=== PATIENT | female | born 1985 | race Caucasian/White ===

== ENCOUNTER 2017-11-20 17:27 | Emergency (ER) | payer BC, OTHER ==
[2017-11-20 18:02] VITALS: BP 117/65; PULSE 128; TEMP 100; BMI 20.9
--- NOTE | 2017-11-20 19:08 | PDOC ---
History of Present Illness - History of Present Illness Initial Comments: 11/20/17 20:13 Patient is a 32F, with no significant PMHx, who presents with abdominal pain today. Patient states that she started experiencing lower left sided abdominal pain that now radiates to her back. She does admit to heavy lifting earlier and states it could be a possible contributory factor. She is also complaining of body aches and fever. She states that on Tuesday, Nov 16 she saw her RADAR ENGINEER who confirmed that she has a cyst. She also admits to sick contacts - states he son is flu-A positive. Surgical Hx: denies PCP: Jenny Rice <Brinda Teixeira - Last Filed: 11/20/17 20:14> <Thalia Leija - Last Filed: 11/20/17 21:28> - General Chief Complaint: Pain, Acute Stated Complaint: PAIN Time Seen by Provider: 11/20/17 18:10 Past History <Brinda Teixeira - Last Filed: 11/20/17 20:14> - Suicide/Smoking/Psychosocial Hx Smoking History: Never smoked <Thalia Leija - Last Filed: 11/20/17 21:28> - Past Medical History Allergies/Adverse Reactions: Allergies Allergy/AdvReac Type Severity Reaction Status Date / Time No Known Allergies Allergy Verified 11/20/17 18:00 Review of Systems - Review of Systems Comments:: 11/20/17 20:14 CONSTITUTIONAL: Present: fever, body aches Absent: no chills, no fatigue EYES: Absent: visual changes ENT: Absent: ear pain, no sore throat CARDIOVASCULAR: Absent: chest pain, no palpitations RESPIRATORY: Absent: cough, no SOB GI: Present: Left subrapubic pain Absent: no nausea, no vomiting, no constipation, no diarrhea GENITOURINARY: Absent: dysuria, no frequency, no hematuria MUSCULOSKELETAL: Absent: no arthralgia, no myalgia SKIN: Absent: rash NEURO: Absent: headache <Brinda Teixeira - Last Filed: 11/20/17 20:14> *Physical Exam - Vital Signs Last Vital Signs Temp Pulse Resp BP Pulse Ox 100.0 F H 128 H 20 117/65 99 11/20/17 18:00 11/20/17 18:00 11/20/17 18:00 11/20/17 18:00 11/20/17 18:00 - Physical Exam Comments: 11/20/17 20:16 GENERAL: Febrile. Well-appearing, well-nourished. No apparent distress. HEENT: Normocephalic, atraumatic. PERRL, EOM intact. CARDIOVASCULAR: Normal S1, S2. Regular rate and rhythm. PULMONARY: Clear to auscultation bilaterally. ABDOMEN: Soft, non-distended, left suprapubic tenderness to palpation. EXTREMITIES: Normal ROM in all four extremities. No gross deformities. SKIN: Warm, dry. No rash NEUROLOGICAL: No focal neurological deficits. <Brinda Teixeira - Last Filed: 11/20/17 20:14> - Vital Signs Last Vital Signs Temp Pulse Resp BP Pulse Ox 100.0 F H 128 H 20 117/65 99 11/20/17 18:00 11/20/17 18:00 11/20/17 18:00 11/20/17 18:00 11/20/17 18:00 <Thalia Leija - Last Filed: 11/20/17 21:28> ED Treatment Course - Medications Given in the ED: ED Medications Discontinued Medications Generic Name Dose Route Start Last Admin Trade Name Freq PRN Reason Stop Dose Admin Ibuprofen 600 mg 11/20/17 19:41 11/20/17 20:09 Motrin - PO 11/20/17 19:42 600 mg ONCE ONE Administration <Brinda Teixeira - Last Filed: 11/20/17 20:14> Medical Decision Making - Medical Decision Making 11/20/17 21:24 Female with no past medical history presents with body pains and fever. She was concerned because the pain seemed to come on suddenly and she has a history of a left ovarian cyst that was diagnosed last Tuesday by her sewing department supervisor. Today, her pain is more in her back. Her son was diagnosed with influenza. 2 days ago. She is not . She does not have a urinary tract infection. Her pain went away with Motrin, Although her rapid influenza test was negative, I suspect that she is having prodromal symptoms from influenza and that her test was a false negative. She was encouraged to rest, take Tylenol or Motrin for fever and bodyaches, and I sent a Tamiflu prescription to her pharmacy <Thalia Leija - Last Filed: 11/20/17 21:28> *DC/Admit/Observation/Transfer <PuneetBrinda - Last Filed: 11/20/17 20:14> <HeladioThalia Darlene - Last Filed: 11/20/17 21:28> Diagnosis at time of Disposition: Fever Qualifiers: Fever type: due to other condition Qualified Code(s): R50.81 - Fever presenting with conditions classified elsewhere Back pain Qualifiers: Back pain location: low back pain Chronicity: acute Back pain laterality: bilateral Sciatica presence: without sciatica Qualified Code(s): M54.5 - Low back pain - Discharge Dispostion Disposition: HOME Condition at time of disposition: Stable - Referrals Referrals: Jenny Rice [Primary Care Provider] - - Patient Instructions Printed Discharge Instructions: DI for Fever (Symptom) -- Adult Additional Instructions: please take tylenol or motrin for pain or fever rest drink plenty of water Return to the ER if you have worsening symptoms - Post Discharge Activity
[2017-11-20] MEDS ORDERED: IBUPROFEN 600 MG TABLET (FP) PO ONE ×2 (19:41→20:01)
[2017-11-20 20:16] LABS: URINE APPEARANCE CLEAR; URINE BILIRUBIN NEGATIVE (NEGATIVE); URINE BLOOD 3+ (NEGATIVE); URINE COLOR STRAW; URINE GLUCOSE (UA) NEGATIVE (NEGATIVE); URINE KETONE 1+ (NEGATIVE); URINE LEUK ESTERASE TRACE (NEGATIVE); URINE NITRITE NEGATIVE (NEGATIVE); URINE PROTEIN NEGATIVE (NEGATIVE); URINE UROBILINOGEN NEGATIVE mg/dL (0.2-1.0)
[2017-11-20 20:27] LABS: URINE BACTERIA RARE /hpf (NONE SEEN)
== END 2017-11-20 21:39 | disposition home or self-care (01) ==
LOC: JER 17:27
DX: M54.5 Low back pain (principal); N83.202 Unspecified ovarian cyst, left side
CPT/HCPCS: 81003; 81015; 84703; 87804; 99281-25

== ENCOUNTER 2017-11-23 12:16 | Emergency (ER) | payer OTHER ==
[2017-11-23 12:22] VITALS: BP 123/67; PULSE 110; TEMP 100.2; BMI 20.9
--- NOTE | 2017-11-23 14:28 | PDOC ---
History of Present Illness - General Chief Complaint: Cold Symptoms Stated Complaint: COLD SYMPTOMS Time Seen by Provider: 11/23/17 14:15 History Source: Patient Exam Limitations: No Limitations - History of Present Illness Initial Comments: 11/23/17 14:41 Patient is here with continued complaints of body aches, chills, general malaise. was seen here 2 days ago and was prescribed azithromycin with his symptoms that are similar to hers. Patient was concerned she may have a bacterial infection and not influenza which she is currently under treatment for. Is able to tolerate by mouth fluids, but states felt cills and body aches persisted. Severity: reports: mild Associated Symptoms: reports: cough, dizziness, fever/chills, lightheadedness, nasal congestion, sore throat Past History - Travel Traveled outside of the country in the last 30 days: No Close contact w/someone who was outside of country & ill: No - Past Medical History Allergies/Adverse Reactions: Allergies Allergy/AdvReac Type Severity Reaction Status Date / Time No Known Allergies Allergy Verified 11/23/17 12:22 Home Medications: Ambulatory Orders Oseltamivir Phosphate [Tamiflu -] 75 mg PO BID #10 capsule 11/20/17 COPD: No - Suicide/Smoking/Psychosocial Hx Smoking History: Never smoked Information on smoking cessation initiated: No Hx Alcohol Use: No Drug/Substance Use Hx: No Substance Use Type: None Review of Systems - Review of Systems Able to Perform ROS?: Yes Is the patient limited Venezuelan proficient: Yes Constitutional: Yes: Symptoms Reported, See HPI, Loss of Appetite, Malaise HEENTM: Yes: Symptoms Reported, See HPI, Nose Congestion Respiratory: Yes: See HPI, Cough. No: Wheezing Musculoskeletal: Yes: Symptoms Reported, See HPI Integumentary: No: Symptoms Reported Neurological: Yes: Symptoms reported, See HPI All Other Systems: Reviewed and Negative *Physical Exam - Vital Signs Last Vital Signs Temp Pulse Resp BP Pulse Ox 100.2 F H 110 H 18 123/67 99 11/23/17 12:20 11/23/17 12:20 11/23/17 12:20 11/23/17 12:20 11/23/17 12:20 - Physical Exam General Appearance: Yes: Nourished, Appropriately Dressed, Apparent Distress, Mild Distress HEENT: positive: NANCY, Normal ENT Inspection, Normal Voice, TMs Normal, Pharynx Normal, Nasal Congestion, Rhinorrhea Neck: positive: Supple, Lymphadenopathy (R), Lymphadenopathy (L). negative: Tender Respiratory/Chest: positive: Lungs Clear, Normal Breath Sounds, Wheezing Gastrointestinal/Abdominal: positive: Normal Bowel Sounds, Soft Musculoskeletal: positive: Normal Inspection Extremity: positive: Normal Capillary Refill, Normal Inspection, Normal Range of Motion Integumentary: positive: Dry, Warm, Pale Neurologic: positive: maintenance of way clerk II-XII NML intact, Fully Oriented, Alert, Normal Mood/ Affect, Normal Response, Motor Strength 5 Progress Note - Progress Note Progress Note: Lingering symptoms of influenza, patient currently finishing course of Tamiflu. No further treatment indicated and conservative measures *DC/Admit/Observation/Transfer Diagnosis at time of Disposition: Influenzal acute upper respiratory infection - Discharge Dispostion Disposition: HOME Condition at time of disposition: Stable Admit: No - Referrals Referrals: Jenny Rice [Primary Care Provider] - - Patient Instructions Printed Discharge Instructions: DI for Viral Upper Respiratory Infection-Child Additional Instructions: Rest, drink lots of fluids: Teas, water, soups, Pedialyte Saltwater gargles Steamy showers/seem to face break up mucus Old-fashioned treatments help! Avoid contact with others until fevers and cough resolved as this is very contagious Lots of handwashing and good hygiene Continue [id number] medications for symptomatic relief Tylenol or Motrin for fever and pain Take all of Tamiflu as directed: 1 tab every 12 hours for 5 days Followup with private physician in one to 2 days as needed or if worsening Return to emergency department for worsened symptoms, fevers, dehydration Influenza takes between 5 and 7 days for resolution To not participate in any activity, work, or school until fevers and cough are gone for at least one day - Post Discharge Activity Forms/Work/School Notes: Back to Work
[2017-11-23] MEDS ORDERED: KETOROLAC TROMETHAMINE 60 MG/2 ML VIAL IM ONE (14:36)
[2017-11-23] MEDS ORDERED: KETOROLAC TROMETHAMINE 60 MG/2 ML VIAL ONE (14:38)
== END 2017-11-23 14:45 | disposition home or self-care (01) ==
LOC: JERFT 12:16
PROC: 3E0233Z Introduction of Anti-inflammatory into Muscle, Percutaneous Approach (ICD-10-PCS; principal; 2017-11-23)
DX: J10.1 Influenza due to other identified influenza virus with other respiratory manifestations (principal)
CPT/HCPCS: 99281-25

== ENCOUNTER 2017-12-15 05:18 | Day surgery (SDC) | payer OTHER ==
[2017-12-14 08:17] VITALS: BMI 20.7
[2017-12-15] MEDS ORDERED: oxyCODONE HCL 5 MG TABLET PO PRN ×2 (08:11→09:54)
[2017-12-15] MEDS ORDERED: IBUPROFEN 400 MG TABLET (FP) PO PRN (08:11)
[2017-12-15] MEDS ORDERED: ACETAMINOPHEN 325 MG TABLET (FP) PO PRN (08:11)
--- NOTE | 2017-12-15 08:11 | HP ---
History & Physical Update - History History: No Change - Physical Physical: No Change - Assessment Assessment: No Change - Plan Plan: No Change
[2017-12-15] MEDS ORDERED: MIDAZOLAM HCL 2 MG/2 ML SINGLE DOSE VIAL ONE (09:33)
[2017-12-15] MEDS ORDERED: KETOROLAC TROMETHAMINE 30 MG/1 ML VIAL ONE (09:34)
[2017-12-15] MEDS ORDERED: DEXAMETHASONE SOD PHOSPHATE 4 MG/1 ML VIAL ONE (09:34)
[2017-12-15] MEDS ORDERED: LIDOCAINE HCL/PF 2% SDV 5ML VIAL ONE ×2 (09:34→10:18)
[2017-12-15] MEDS ORDERED: GLYCOPYRROLATE 0.2 MG/1 ML VIAL ONE (09:34)
[2017-12-15] MEDS ORDERED: ONDANSETRON 4 MG/2 ML VIAL IVPUSH PRN (09:54)
[2017-12-15] MEDS ORDERED: LACTATED RINGERS SOLUTION 1,000 ML IV SCH (10:00)
[2017-12-15] MEDS ORDERED: ceFAZolin SODIUM 1 GM VIAL IVPB ONE (10:01)
[2017-12-15] MEDS ORDERED: PROPOFOL 20 ML ONE ×2 (10:15)
[2017-12-15] MEDS ORDERED: ROCURONIUM BROMIDE 50 MG/5 ML VIAL ONE (10:19)
[2017-12-15] MEDS ORDERED: BUPIVACAINE HCL/PF 0.5% (5MG/ML) 10 ML VIAL IJ ONE (10:40)
--- NOTE | 2017-12-15 11:12 | OP ---
DATE OF OPERATION: 12/15/2017 PREOPERATIVE DIAGNOSES: Ovarian cyst, multiparity, and voluntary sterilization. OPERATION: Laparoscopic bilateral salpingectomy and right fallopian tube cystectomy. POSTOPERATIVE DIAGNOSES: Right fallopian tube cyst. Normal tubes and ovaries. DESCRIPTION OF PROCEDURE: Patient was taken to the operating room, placed in dorsal lithotomy position, prepped and draped in the usual sterile fashion. A timeout was performed in accordance with hospital regulation. Wei catheter was inserted into the bladder. Attention was then drawn to the umbilicus where a 5-mm umbilical incision was made. Veress needle was inserted into the cavity. Approximately 3-4 L of CO2 was insufflated in the cavity. Veress needle was removed, and a 5-mm trocar was inserted. Laparoscope and camera were attached. Trocars were then inserted in the left and right lower abdomen. Scalpel was made, and a 5-mm trocar was then inserted under direct visualization. Bilateral tubes were seen. Also, a right fallopian tube cyst was also seen. tubes were grasped, and bilateral salpingectomy was performed using cutting and cautery. Left tube was grabbed and removed using LigaSure. Left tube was submitted to Pathology. Attention was then drawn to the right side where a right fallopian tube cyst was seen. Cautery and cutting of the right fallopian tube was done, and tube and cyst were removed and submitted to Pathology. Right fallopian tube cystectomy was done, and cyst was removed. Hemostasis achieved. Estimated blood loss was 10 mL. CO2 was removed from the abdomen. Trocars removed and incisions were then closed using 4-0 Biosyn suture in a subcuticular fashion. Wound was washed and dressed. The patient had tolerated the procedure well, was taken to Recovery in stable condition. Again, estimated blood loss 10 mL. ANGELY LAWSON M.D. [id number]
[2017-12-15 11:56] VITALS: TEMP 98
[2017-12-15] MEDS ORDERED: oxyCODONE HCL 5 MG TABLET ONE (12:52)
[2017-12-15 15:46] VITALS: BP 99/68; PULSE 67
--- NOTE | 2017-12-16 14:39 | PATH ---
Surgical Pathology Report Patient Name: EVERARDO SERNA [facility]. Rec. #: [id number] /Age/Gender: 1985 (Age: 32) / F Account: [id number] Location: [facility] SURGICAL Taken: 12/15/2017 Received: 12/15/2017 Reported: 12/16/2017 Physicians: Rosemary Croft M.D. Specimen(s) Received A: RIGHT FALLOPIAN TUBE AND FALLOPIAN CYST B: LEFT FALLOPIAN TUBE Clinical History Sterilization Final Diagnosis A. RIGHT FALLOPIAN TUBE, SALPINGECTOMY: BENIGN FALLOPIAN TUBE INCLUDING FIMBRIATED END, WITH BENIGN PARATUBAL CYST. B. LEFT FALLOPIAN TUBE, SALPINGECTOMY: BENIGN FALLOPIAN TUBE INCLUDING FIMBRIATED END, WITH BENIGN PARATUBAL CYST. Electronically Signed Sanford Arredondo M.D. Gross Description A. Received in formalin labeled "right fallopian cyst and tube," are 2 pink-cho portions of fallopian tube measuring 2.0 and 3.0 cm in length. The outer surfaces are cho-pink and smooth. Sectioning reveals unremarkable lumen. There are fimbriae with an attached paratubal cyst separately received within the same container. The paratubal cyst measures 0.8 cm in greatest dimension. Water Resources Engineer sections are submitted in 2 cassettes as follows: 1-fimbria with attached paratubal cyst; 2-cross sections of fallopian tube. B. Received in formalin labeled "left fallopian tube," is a 4 cm in length fimbriated portion of fallopian tube. There is a 0.9 cm in greatest dimension paratubal cyst attached to the fimbria. The outer surface of the fallopian tube is pink-cho and smooth. Sectioning reveals an unremarkable lumen. Water Resources Engineer sections are submitted in 2 cassettes as follows: 1-fimbria with attached paratubal cyst; 2-cross sections of fallopian tube. DL/12/15/2017 saudi/12/15/2017
== END 2017-12-15 14:10 | disposition home or self-care (01) ==
LOC: JASU-SURG 05:18
PROVIDERS: ATTEND Obstetrics & Gynecology
PROC: 0UB74ZZ Excision of Bilateral Fallopian Tubes, Percutaneous Endoscopic Approach (ICD-10-PCS; principal; 2017-12-15 09:00)
PROC: 0UB54ZZ Excision of Right Fallopian Tube, Percutaneous Endoscopic Approach (ICD-10-PCS; 2017-12-15 09:00)
DX: Z30.2 Encounter for sterilization (principal); N83.8 Other noninflammatory disorders of ovary, fallopian tube and broad ligament
CPT/HCPCS: 86900; 88302-TC; 94760

== ENCOUNTER 2018-03-31 03:52 | Emergency (ER) | payer OTHER ==
[2018-03-31 04:15] LABS: URINE APPEARANCE CLEAR; URINE BILIRUBIN NEGATIVE (<2.0 mg/dL); URINE BLOOD 3+ (NEGATIVE); URINE COLOR AMBER; URINE GLUCOSE (UA) NEGATIVE (NEGATIVE); URINE KETONE NEGATIVE (NEGATIVE); URINE NITRITE POSITIVE (NEGATIVE); URINE UROBILINOGEN NEGATIVE mg/dL (0.2-1.0)
--- NOTE | 2018-03-31 04:18 | PDOC ---
History of Present Illness - General Chief Complaint: Urinary Problem Stated Complaint: URINARY PROBLEM Time Seen by Provider: 03/31/18 04:05 History Source: Patient Exam Limitations: No Limitations - History of Present Illness Travel History: No Initial Comments: 03/31/18 04:16 33-year-old female with no past medical history presents to the emergency room with complaints of urinary frequency, pressure and now hematuria since this morning. Patient states symptoms began a few days ago and tried increasing her fluids and trying [id number]-[id number] medication with no improvement. Patient denies fever, chills, back pain, vaginal discharge irregular menses. Patient states did have bilateral BTL in December which she states was success with no complications. Patient has no other complaints at this time. Timing/Duration: reports: constant Quality: reports: mild, cramping, fullness Abdominal Pain Onset Location: reports: suprapubic Pain Radiation: reports: no radiation Activities at Onset: reports: none Aggravating Factors: improves with: Voiding Alleviating Factors: improves with: None Past History - Past Medical History Allergies/Adverse Reactions: Allergies Allergy/AdvReac Type Severity Reaction Status Date / Time No Known Allergies Allergy Verified 03/31/18 04:11 Home Medications: Ambulatory Orders Ibuprofen [Motrin -] 600 mg PO QID #120 tablet 12/15/17 Nitrofurantoin Monohyd/M-Cryst [Macrobid -] 100 mg PO BID #13 capsule 03/31/18 Phenazopyridine HCl [Pyridium] 200 mg PO TID #5 tablet 03/31/18 Anemia: No Asthma: No Cancer: No Cardiac Disorders: No CVA: No COPD: No CHF: No Dementia: No Diabetes: No GI Disorders: No Disorders: No HTN: No Hypercholesterolemia: No Liver Disease: No Seizures: No Thyroid Disease: No - Suicide/Smoking/Psychosocial Hx Smoking History: Never smoked Have you smoked in the past 12 months: No Information on smoking cessation initiated: No Hx Alcohol Use: No Drug/Substance Use Hx: No Substance Use Type: Alcohol Hx Substance Use Treatment: No Patient Lives Alone: No Lives with/in: parents Review of Systems - Review of Systems Able to Perform ROS?: Yes Constitutional: No: Symptoms Reported ABD/GI: Yes: Abdominal cramping : Yes: Burning, Dysuria, Frequency, Hematuria, Urgency Musculoskeletal: No: Symptoms Reported Integumentary: No: Symptoms Reported Neurological: No: Symptoms reported *Physical Exam - Vital Signs Last Vital Signs Temp Pulse Resp BP Pulse Ox 97.5 F L 72 20 116/75 100 03/31/18 03:55 03/31/18 03:55 03/31/18 03:55 03/31/18 03:55 03/31/18 03:55 - Physical Exam General Appearance: Yes: Nourished, Appropriately Dressed. No: Apparent Distress Neck: positive: Normal Thyroid, Supple Gastrointestinal/Abdominal: positive: Normal Bowel Sounds, Soft, Tenderness ( mild lower mid suprapubic). negative: Distended, Guarding, Rebound Musculoskeletal: negative: CVA Tenderness Extremity: positive: Normal Capillary Refill. negative: Pedal Edema Integumentary: positive: Normal Color, Warm, Moist Neurologic: positive: Motor Strength 5/5 (ambulatory) Medical Decision Making - Medical Decision Making 03/31/18 04:17 Patient with urinary complaints for the past 2 days with no improvement with [id number]-[id number] AZO and increase her fluids. Patient history of BTL in December has no other complaints at this time. LMP March 13. Rule out UTI/. UA U culture and hCG was sent. Patient offered Tylenol refused at this time. 03/31/18 04:30 Laboratory Tests 03/31/18 04:07 Urine Blood 3+ H Urine Nitrite Positive Ur Leukocyte Esterase 2+ H Urine RBC (Auto) Pending Patient with no previous urine culture on file. Patient will be given Pyridium secondary to urinary frequency and burning along with Macrobid. Urine culture was sent. *DC/Admit/Observation/Transfer Diagnosis at time of Disposition: UTI (urinary tract infection) - Discharge Dispostion Disposition: HOME Condition at time of disposition: Good - Prescriptions Prescriptions: Nitrofurantoin Monohyd/M-Cryst [Macrobid -] 100 mg PO BID #13 capsule Phenazopyridine HCl [Pyridium] 200 mg PO TID #5 tablet - Referrals Referrals: Jenny Rice [Primary Care Provider] - - Patient Instructions Printed Discharge Instructions: DI for Urinary Tract Infection (UTI) Additional Instructions: Take antibiotics starting later today since your given your first dose here in the ER. May take Tylenol or Motrin if you develop any fever. If you develop worsening symptoms including back pain please return to the nearest ER. Otherwise finish antibiotics as prescribed. - Post Discharge Activity
[2018-03-31 04:21] LABS: URINE LEUK ESTERASE 2+ (NEGATIVE); URINE PROTEIN 1+ (NEGATIVE)
[2018-03-31] MEDS ORDERED: PHENAZOPYRIDINE HCL 100 MG TABLET (FP) PO ONE (04:36)
[2018-03-31 04:37] VITALS: BP 116/75; PULSE 72; TEMP 97.5; BMI 24.4
[2018-03-31] MEDS ORDERED: NITROFURANTOIN MACROCRYSTAL 50 MG CAPSULE (FP) ONE (04:40)
[2018-03-31] MEDS ORDERED: PHENAZOPYRIDINE HCL 100 MG TABLET (FP) ONE (04:40)
[2018-03-31] MEDS ORDERED: NITROFURANTOIN MACROCRYSTAL 50 MG CAPSULE (FP) PO SCH (04:45)
[2018-03-31 05:25] LABS: URINE BACTERIA RARE /hpf (NONE SEEN)
[2018-03-31 05:32] LABS: HCG,QUALITATIVE URINE NEGATIVE
--- NOTE | 2018-04-02 15:32 | PDOC ---
Patient Follow-up (Call Back) - Post ED Follow - Up Condition at time of discharge: Good Disposition at time of original discharge: HOME Reason for Call Back: Abnwl. Microbiology (Pt. on macrobid for UTI. Patient with macrobid sensitive e.coli. No further action needed at this time)
== END 2018-03-31 04:45 | disposition home or self-care (01) ==
LOC: JER 03:52
DX: N39.0 Urinary tract infection, site not specified (principal); B96.89 Other specified bacterial agents as the cause of diseases classified elsewhere
CPT/HCPCS: 81003; 81015; 84703; 87086; 87186; 99282-25

== ENCOUNTER 2019-08-23 20:12 | Emergency (ER) | payer OTHER ==
[2019-08-23] MEDS ORDERED: ONDANSETRON *ODT* 4 MG TABLET SL ONE (20:32)
--- NOTE | 2019-08-23 20:33 | PDOC ---
Rapid Medical Evaluation Chief Complaint: Nausea/Vomiting Time Seen by Provider: 08/23/19 20:29 Medical Evaluation: Allergies Allergy/AdvReac Type Severity Reaction Status Date / Time No Known Allergies Allergy Verified 03/31/18 04:11 08/23/19 20:29 I have performed a brief in-person evaluation of this patient. The patient presents with a chief complaint of:N/V x 4 episodes. No fevers, no vaginal bowel or urine problems Pertinent physical exam findings: pale , abd soft I have ordered the following: UA / zofran ordered The patient will proceed to the ED for further evaluation. 08/23/19 20:33 Discharge Disposition - Diagnosis N&V (nausea and vomiting) - Discharge Dispostion Condition at time of disposition: Stable - Referrals - Patient Instructions - Post Discharge Activity
[2019-08-23 20:38] VITALS: TEMP 97.9; BMI 20.7
[2019-08-23] MEDS ORDERED: ACETAMINOPHEN 1000 MG/100 ML VIAL (NON FORMULARY) IVPB ONE (20:46)
[2019-08-23] MEDS ORDERED: SODIUM CHLORIDE 1,000 ML IV STA (20:46)
[2019-08-23] MEDS ORDERED: ONDANSETRON 4 MG/2 ML VIAL IVPUSH ONE (21:28)
[2019-08-23] MEDS ORDERED: ACETAMINOPHEN INJECTION 100 ML IVPB ONE (21:31)
[2019-08-23] MEDS ORDERED: ONDANSETRON 4 MG/2 ML VIAL ONE (21:31)
--- NOTE | 2019-08-23 21:38 | PDOC ---
History of Present Illness - General Chief Complaint: Nausea/Vomiting Stated Complaint: NAUSEA/VOMITING Time Seen by Provider: 08/23/19 20:29 - History of Present Illness Initial Comments: 08/23/19 21:29 34f with no pmh presents to the ED for nausea/vomiting and bitemporal headache since 11am this morning. She vomited 4 times, last of which was an hour ago. Unable to keep anything down. Vomitus is clear, non bilious, on-bloody. Headache was slow in onset, about 5/10, bitemporal. Had a couple drinks last night and take out food with the family but no one else is sick. Works at the [employer] where she is in contact with hundreds of people all day. Had tubal ligation surgery one year ago. Denies fever, chills, sob, chest pain, change in vision, diarrhea. Past History - Past Medical History Allergies/Adverse Reactions: Allergies Allergy/AdvReac Type Severity Reaction Status Date / Time No Known Allergies Allergy Verified 03/31/18 04:11 Home Medications: Ambulatory Orders Ibuprofen [Motrin -] 600 mg PO QID #120 tablet 12/15/17 Nitrofurantoin Monohyd/M-Cryst [Macrobid -] 100 mg PO BID #13 capsule 03/31/18 Phenazopyridine HCl [Pyridium] 200 mg PO TID #5 tablet 03/31/18 Anemia: No Asthma: No Cancer: No Cardiac Disorders: No CVA: No COPD: No CHF: No Dementia: No Diabetes: No GI Disorders: No Disorders: No HTN: No Hypercholesterolemia: No Liver Disease: No Seizures: No Thyroid Disease: No - Psycho Social/Smoking Cessation Hx Smoking History: Never smoked Have you smoked in the past 12 months: No Information on smoking cessation initiated: No Hx Alcohol Use: No Drug/Substance Use Hx: No Substance Use Type: Alcohol Hx Substance Use Treatment: No Review of Systems - Review of Systems Able to Perform ROS?: Yes Is the patient limited Puerto Rican proficient: No Constitutional: Yes: Loss of Appetite. No: Symptoms Reported HEENTM: No: Symptoms Reported Respiratory: No: Symptoms reported Cardiac (ROS): No: Symptoms Reported ABD/GI: Yes: See HPI : No: Symptoms Reported Musculoskeletal: No: Symptoms Reported Integumentary: No: Symptoms Reported Neurological: No: Symptoms reported All Other Systems: Reviewed and Negative *Physical Exam - Vital Signs Last Vital Signs Temp Pulse Resp BP Pulse Ox 97.9 F 77 18 118/85 100 08/23/19 20:30 08/23/19 20:30 08/23/19 20:30 08/23/19 20:30 08/23/19 20:30 - Physical Exam General Appearance: Yes: Nourished, Appropriately Dressed. No: Apparent Distress HEENT: positive: EOMI, NANCY, Normal ENT Inspection Neck: negative: Tender, Carotid bruit Respiratory/Chest: positive: Lungs Clear, Normal Breath Sounds. negative: Chest Tender, Respiratory Distress Cardiovascular: positive: Regular Rhythm, Regular Rate, S1, S2 Gastrointestinal/Abdominal: positive: Normal Bowel Sounds, Flat, Soft. negative : Tender Musculoskeletal: positive: Normal Inspection. negative: CVA Tenderness Integumentary: positive: Normal Color, Dry, Warm Neurologic: positive: Fully Oriented, Alert, Normal Mood/Affect, Normal Response , Motor Strength 5/5 Medical Decision Making - Medical Decision Making 08/23/19 21:39 34f with no pmh presents to the ED for nausea/vomiting and bitemporal headache since 11am this morning. DDX: mild viral gastroenteritis, food poisoning, hangover, , SAH Low intensity headache, neurologically intact, low suspicion for stroke or sah, or carotid dissection. Likely viral gastro. Low suspicion for food poisoning as nobody else got sick after sharing the same food. Will rehydrate with 1L fluids zofran for nausea and Tylenol for headache. Upreg pending. 08/23/19 22:41 Patient feels much better. Nausea and headache gone, PO challenge and DC. Discharge - Discharge Information Problems reviewed: Yes Clinical Impression/Diagnosis: N&V (nausea and vomiting) Condition: Stable - Admission No - Follow up/Referral Referrals: Jenny Rice [Primary Care Provider] - - Patient Discharge Instructions Patient Printed Discharge Instructions: DI for Viral Gastroenteritis -- Adult Additional Instructions: Come back to the emergency department for any new, worsening or concerning symptoms. Follow up with your primary physician within a week. - Post Discharge Activity
[2019-08-23] MEDS ORDERED: METOCLOPRAMIDE HCL INJECTION 10 MG/2 ML VIAL IVPUSH ONE (21:49)
[2019-08-23 22:06] LABS: EPI CELLS 5.7 /HPF (0-5/HPF); HYALINE CASTS 15 /lpf (0-8); PH,URINE 5.5 (5.0-8.0); URINE APPEARANCE CLOUDY; URINE BACTERIA 57.5 /hpf (NEGATIVE); URINE BILIRUBIN NEGATIVE (NEGATIVE); URINE COLOR YELLOW; URINE GLUCOSE (UA) NEGATIVE (NEGATIVE); URINE KETONE 3+ (NEGATIVE); URINE LEUK ESTERASE NEGATIVE (NEGATIVE); URINE NITRITE NEGATIVE (NEGATIVE); URINE PROTEIN 2+ (NEGATIVE); URINE WBC 6 /hpf (0-5)
[2019-08-23 22:33] VITALS: BP 103/70; PULSE 72
[2019-08-23] MEDS ORDERED: METOCLOPRAMIDE HCL INJECTION 10 MG/2 ML VIAL ONE (22:34)
--- NOTE | 2019-08-23 22:52 | PDOC ---
Documentation entered by Richard Guerrero SCRIBE, acting as scribe for Gagan Jacobs MD. Gagan Jacobs MD: This documentation has been prepared by the Cesar diego Xhesika, SCRIBE, under my direction and personally reviewed by me in its entirety. I confirm that the documentation accurately reflects all work, treatment, procedures, and medical decision making performed by me. Attending Attestation - Resident Resident Name: Reggie Mcdermott - ED Attending Attestation I have performed the following: I have examined & evaluated the patient, The case was reviewed & discussed with the resident, Exceptions are as noted - HPI HPI: 08/23/19 20:55 The patient is a 34 year old female with no significant PMH of who presents to the emergency department for nausea and 4 episodes of nbnb vomiting since 11am. Patient notes she had takeout and 2 drinks last night. Pt endorses feeling generally weak and hung over this morning, after geting up she had something to drihnk then vomited. pt endorses a gradual onset pounding headache in the frontal regiont withou associated fever/chills, vision changes, numbness/ tingling/weakness, neck pain, back pain, abd pain, ches pain, diarhea, bpr. LMP lsa week and was normal. no travel or sick contacts Allergies: NKDA Surgical hsx: tubectomy PCP: Dr. Jenny Rice - Physicial Exam PE: 08/23/19 20:56 GENERAL: The patient is awake, alert, and fully oriented, Nontoxic - in no acute distress. HEAD: Normocephalic, atraumatic. EYES: extraocular movements intact, sclera anicteric, conjunctiva clear. ENT: Normal voice, Moist mucous membranes. NECK: Normal range of motion, supple without lymphadenopathy, JVD, or masses. LUNGS: Breath sounds equal, clear to auscultation bilaterally. No wheezes, no crackles, no rales. HEART: Regular rate and rhythm, normal S1 and S2 without murmur, rub or gallop. ABDOMEN: Soft, nontender, normoactive bowel sounds. No guarding, no rebound. No masses. EXTREMITIES: Normal range of motion, no edema. No clubbing or cyanosis. No cords, erythema, or tenderness. NEUROLOGICAL: No facial asymmetry, Normal speech, normal gait. PSYCH: Normal mood, normal affect. SKIN: Warm, Dry, normal turgor, no rashes or lesions noted. - Medical Decision Making 08/23/19 21:56 Possible migraine versus gastritis We will give Reglan, fluids will obtain UA and hCG No signs of abdominal tenderness suggest acute intra-abdominal process 08/23/19 22:52 Patient feeling improved headache resolved patient tolerating oral intake will discharge patient with outpatient management Return precautions were discussed
[2019-08-23 23:28] LABS: URINE RBC 152 /hpf (0-4)
== END 2019-08-23 23:37 | disposition home or self-care (01) ==
LOC: JER 20:12
PROC: 3E033NZ Introduction of Analgesics, Hypnotics, Sedatives into Peripheral Vein, Percutaneous Approach (ICD-10-PCS; principal; 2019-08-23)
PROC: 3E033GC Introduction of Other Therapeutic Substance into Peripheral Vein, Percutaneous Approach (ICD-10-PCS; 2019-08-23)
DX: A08.4 Viral intestinal infection, unspecified (principal); B97.89 Other viral agents as the cause of diseases classified elsewhere
CPT/HCPCS: 81003; 84703; 99283-25; J0131; J7030

== ENCOUNTER 2021-07-19 14:03 | Emergency (ER) | payer OTHER ==
[2021-07-19 14:06] VITALS: BMI 21.4
[2021-07-19] MEDS ORDERED: METOCLOPRAMIDE HCL INJECTION 10 MG/2 ML VIAL IVPUSH ONE (15:29)
[2021-07-19] MEDS ORDERED: ACETAMINOPHEN/CAFFEINE/BUTALBITAL 1 TAB PO ONE (15:31)
[2021-07-19] MEDS ORDERED: SODIUM CHLORIDE 1,000 ML IV STA (15:32)
[2021-07-19] MEDS ORDERED: METOCLOPRAMIDE HCL INJECTION 10 MG/2 ML VIAL ONE (16:06)
[2021-07-19 16:12] LABS: HEMATOCRIT 31.8 % (32.4-45.2); HEMOGLOBIN 10.2 GM/dL (10.7-15.3); MCHC 32.1 g/dl (32.0-36.0); MEAN CELL VOLUME 65.4 fl (80-96); MEAN PLT VOLUME 7.5 fl (7.5-11.1); PLATELET COUNT 367 10^3/uL (134-434); RBC 4.87 M/mm3 (3.60-5.2); RDW 16.7 % (11.6-15.6); WHITE BLOOD COUNT 8.9 K/mm3 (4.0-10.0)
[2021-07-19 16:32] LABS: CALCIUM 9.2 mg/dL (8.5-10.1)
[2021-07-19 16:33] LABS: ALBUMIN 3.9 g/dl (3.4-5.0); BLOOD UREA NITROGEN 14.7 mg/dL (7-18)
[2021-07-19 16:36] LABS: CREATININE 0.6 mg/dL (0.55-1.3)
[2021-07-19 16:37] LABS: BILIRUBIN,TOTAL 0.3 mg/dL (0.2-1); TOT PROT 7.5 g/dl (6.4-8.2)
[2021-07-19] MEDS ORDERED: ACETAMINOPHEN/CAFFEINE/BUTALBITAL 1 TAB ONE (17:48)
[2021-07-19 18:47] VITALS: BP 126/78; PULSE 88; TEMP 98.5
== END 2021-07-19 18:48 | disposition home or self-care (01) ==
LOC: JER 14:03
PROC: 3E033GC Introduction of Other Therapeutic Substance into Peripheral Vein, Percutaneous Approach (ICD-10-PCS; principal; 2021-07-19)
DX: G43.909 Migraine, unspecified, not intractable, without status migrainosus (principal)
CPT/HCPCS: 36415; 80053; 84703; 85027; 96361; 96374; 99284-25

== ENCOUNTER 2023-09-27 19:03 | Emergency (ER) | payer OTHER ==
[2023-09-27 19:10] VITALS: TEMP 99.5; BMI 21.7
[2023-09-27] MEDS ORDERED: KETOROLAC TROMETHAMINE 15 MG/ML VIAL IVPUSH ONE (21:13)
[2023-09-27] MEDS ORDERED: SODIUM CHLORIDE 0.9% 1000 ML INFUS.BAG IV ONE (21:14)
[2023-09-27] MEDS ORDERED: KETOROLAC TROMETHAMINE 15 MG/ML VIAL ONE (21:28)
[2023-09-27 21:35] LABS: BASO % 0.5 % (0-2.0); EOS % 0.6 % (0-4.5); HEMATOCRIT 37.3 % (32.4-45.2); MCH 22.7 pg (25.7-33.7); MCHC 32.2 g/dl (32.0-36.0); MEAN CELL VOLUME 70.4 fl (80-96); MEAN PLT VOLUME 7.9 fl (7.5-11.1); MONO % 8.7 % (3.8-10.2); NEUT % 86.2 % (42.8-82.8); PLATELET COUNT 291 10^3/uL (134-434); RDW 15.8 % (11.6-15.6); WHITE BLOOD COUNT 9.7 K/mm3 (4.0-10.0)
[2023-09-27 22:01] LABS: POTASSIUM 3.7 mmol/L (3.5-5.1)
[2023-09-27 22:03] LABS: CALCIUM 9.8 mg/dL (8.5-10.1)
[2023-09-27 22:04] LABS: BLOOD UREA NITROGEN 8.7 mg/dL (7-18)
[2023-09-27 22:07] LABS: CREATININE 0.7 mg/dL (0.55-1.3)
[2023-09-27 22:08] LABS: BILIRUBIN,TOTAL 0.4 mg/dL (0.2-1)
[2023-09-27] MEDS ORDERED: ACETAMINOPHEN INJECTION 100 ML IVPB ONE (22:32)
[2023-09-27] MEDS ORDERED: METOCLOPRAMIDE HCL INJECTION 10 MG/2 ML VIAL IVPUSH ONE (23:07)
[2023-09-27] MEDS ORDERED: METOCLOPRAMIDE HCL INJECTION 10 MG/2 ML VIAL ONE (23:10)
[2023-09-27 23:38] VITALS: BP 124/74; PULSE 113; RESP 16
[2023-09-27] MEDS ORDERED: OSELTAMIVIR PHOSPHATE 75 MG CAPSULE PO ONE (23:58)
[2023-09-28] MEDS ORDERED: OSELTAMIVIR PHOSPHATE 75 MG CAPSULE ONE (00:02)
== END 2023-09-28 00:20 | disposition home or self-care (01) ==
LOC: JERFT 19:03
PROC: 3E0333Z Introduction of Anti-inflammatory into Peripheral Vein, Percutaneous Approach (ICD-10-PCS; principal; 2023-09-27)
PROC: 3E033GC Introduction of Other Therapeutic Substance into Peripheral Vein, Percutaneous Approach (ICD-10-PCS; 2023-09-27)
DX: R50.9 Fever, unspecified (principal); R53.83 Other fatigue; M79.10 Myalgia, unspecified site; R11.0 Nausea; R51.9 Headache, unspecified; R63.8 Other symptoms and signs concerning food and fluid intake; J10.1 Influenza due to other identified influenza virus with other respiratory manifestations; G44.209 Tension-type headache, unspecified, not intractable; Z20.822 Contact with and (suspected) exposure to COVID-19
CPT/HCPCS: 0241U-QW; 36415; 80053; 85025; 87651; 99284-25

== ENCOUNTER 2024-06-20 20:44 | Emergency (ER) | payer OTHER ==
[2024-06-20 20:59] VITALS: TEMP 100; BMI 47.9
[2024-06-20] MEDS ORDERED: METOCLOPRAMIDE HCL INJECTION 10 MG/2 ML VIAL ONE (22:56)
[2024-06-20] MEDS ORDERED: KETOROLAC TROMETHAMINE 30 MG/1 ML VIAL ONE (22:57)
[2024-06-20] MEDS: KETOROLAC TROMETHAMINE 30 MG/1 ML VIAL IVPUSH ONE (23:15)
[2024-06-20] MEDS: SODIUM CHLORIDE 0.9% 500 ML INFUS.BAG IV ONE (23:15)
[2024-06-20] MEDS: METOCLOPRAMIDE HCL INJECTION 10 MG/2 ML VIAL IVPUSH ONE (23:15)
[2024-06-20 23:22] LABS: BASO % 0.7 % (0-2.0); EOS % 0.7 % (0-4.5); HEMATOCRIT 34.6 % (32.4-45.2); HEMOGLOBIN 11.1 GM/dL (10.7-15.3); LYMPH % 15.9 % (8-40); MCH 22.6 pg (25.7-33.7); MCHC 32.2 g/dl (32.0-36.0); MEAN CELL VOLUME 70.2 fl (80-96); MEAN PLT VOLUME 7.9 fl (7.5-11.1); MONO % 7.1 % (3.8-10.2); NEUT % 75.6 % (42.8-82.8); PLATELET COUNT 373 10^3/uL (134-434); RBC 4.92 M/mm3 (3.60-5.2); RDW 16.1 % (11.6-15.6); WHITE BLOOD COUNT 8.3 K/mm3 (4.0-10.0)
[2024-06-20 23:40] LABS: POTASSIUM 3.6 mmol/L (3.5-5.1)
[2024-06-20 23:42] LABS: CALCIUM 9.3 mg/dL (8.5-10.1)
[2024-06-20 23:43] LABS: ALBUMIN 3.8 g/dl (3.4-5.0); BLOOD UREA NITROGEN 7.8 mg/dL (7-18)
[2024-06-20 23:46] LABS: CREATININE 0.6 mg/dL (0.55-1.3)
[2024-06-20 23:48] LABS: BILIRUBIN,TOTAL 0.4 mg/dL (0.2-1); TOT PROT 7.6 g/dl (6.4-8.2)
[2024-06-21 00:36] VITALS: BP 119/79; PULSE 89; RESP 18
== END 2024-06-21 00:33 | disposition home or self-care (01) ==
LOC: JER 20:44
PROC: 3E033GC Introduction of Other Therapeutic Substance into Peripheral Vein, Percutaneous Approach (ICD-10-PCS; principal; 2024-06-20)
PROC: 3E0333Z Introduction of Anti-inflammatory into Peripheral Vein, Percutaneous Approach (ICD-10-PCS; 2024-06-20)
PROC: 3E033GC Introduction of Other Therapeutic Substance into Peripheral Vein, Percutaneous Approach (ICD-10-PCS; 2024-06-20)
DX: R51.9 Headache, unspecified (principal); G89.29 Other chronic pain; B34.9 Viral infection, unspecified; R11.2 Nausea with vomiting, unspecified; R63.0 Anorexia; R53.1 Weakness; H53.149 Visual discomfort, unspecified; Z20.822 Contact with and (suspected) exposure to COVID-19
CPT/HCPCS: 0241U-QW; 36415; 80053; 85025; 99284-25